=== PATIENT | female | born 1985 | race African-American/Black ===

== ENCOUNTER 2017-10-25 08:19 | Inpatient (IN) | payer OTHER ==
[~2017-10-25] VITALS: Ht 152.4 cm; Wt 126.1 kg
[2017-10-25 08:25] VITALS: BP 112/66
[2017-10-25] MEDS ORDERED: COUMADIN7.5 MG PO (08:30)
[2017-10-25] MEDS ORDERED: PLAVIX 75 MG TA75 M1 PO (08:30)
[2017-10-25] MEDS ORDERED: FOLIC ACID1 MG PO (08:30)
[2017-10-25] MEDS ORDERED: LASIX 20 MG TAB20 MG PO (08:30)
[2017-10-25] MEDS ORDERED: ASPIR 8181 MG PO (08:30)
[2017-10-25] MEDS ORDERED: ATORVASTATIN CA40 MG PO (08:31)
[2017-10-25] MEDS ORDERED: PREDNISONE 10 M10 MG PO (08:31)
[2017-10-25] MEDS ORDERED: DROXIA200 MG PO (08:31)
[2017-10-25] MEDS ORDERED: NEURONTIN600 MG PO (08:32)
[2017-10-25 09:26] LABS: ABSOLUTE EOSINOPHILS 0.1 thou/uL (0.0-0.7); ABSOLUTE LYMPHOCYTES 0.5 thou/uL (0.8-5.3); ABSOLUTE MONOCYTES 0.4 thou/uL (0.0-1.2); ABSOLUTE NEUTROPHILS 1.3 thou/uL (1.6-8.1); BASOPHILS 1.5 %; EOSINOPHILS 2.2 %; HEMATOCRIT 25.3 % (37.0-47.0); HEMOGLOBIN 8.6 gm/dL (12.0-15.0); LYMPHOCYTES 23.1 %; MCH 31.5 pg (26.0-34.0); MCHC 33.9 g/dL (28.0-37.0); MCV 93.1 fL (80.0-100.0); MONOCYTES 16.8 %; MPV 8.5 fl. (7.2-11.1); NUCLEATED RBCS 0 /100WBC; PLATELET COUNT* 109 thou/uL (150-400); POLYS 56.4 %; RBC 2.72 mil/uL (4.20-5.00); RDW-CV 18.6 % (10.5-14.5); WBC 2.3 thou/uL (4.0-11.0)
[2017-10-25 09:35] LABS: ANION GAP 8 mmol/L (7-16); APTT 29.2 Seconds (25.0-31.3); BUN 4 mg/dL (7-18); CHLORIDE 108 mmol/L (98-107); CO2 26 mmol/L (21-32); CREATININE 0.6 mg/dL (0.6-1.3); GLUCOSE 85 mg/dL (70-99); INR 1.2; POTASSIUM 3.2 mmol/L (3.5-5.1); PROTIME 11.8 Seconds (9.20-11.50); SODIUM 142 mmol/L (136-145)
[2017-10-25 09:49] LABS: ALBUMIN 3.1 g/dL (3.4-5.0); ALKALINE PHOSPHATASE 173 U/L (46-116); LIPASE 61 U/L (73-393); MAGNESIUM 1.4 mg/dL (1.8-2.4); NT-PRO BRAIN NAT PEPTIDE 291 pg/mL (<300); SGOT 23 U/L (15-37); SGPT 36 U/L (30-65); TOTAL BILIRUBIN 0.3 mg/dL (<0.1-1.0); TOTAL PROTEIN 6.7 g/dL (6.4-8.2); TROPONIN-I LEVEL <0.06 ng/mL (<0.06)
[2017-10-25 11:34] VITALS: BP 112/66
--- NOTE | 2017-10-25 12:36 | NUR ---
CONSULTED BY ED TO PLACE PICC AFTER SEVERAL FAILED IV ATTEMPTS.PT REPORTS MULTIPLE PICC LINES IN THE PAST. RISK AND BENIFIT REVIEWED. CONSENT OBTAINED. ORDER NOTED. RIGHT UPPER ARM ASSESSED WITH ULTRRASOUND. RIGHT CEPHALIC IDENTIFIED AND NOTED TO BE DEEP AT 3CM. UNABLE TO IDENTIFY BASILIC VEIN. USING ULTRASOND ABLE TO GET INTO CEPHALIC ON 1ST ATTEMPT. GOOD BLOOD RETURN NOTED. WIRE FED WITH OUT DIFFICULTY. UNABLE TO FEED PICC LINE PAST CLAVICAL. PT INFORMES THAT SHE HAS LYMPHOMA AND A MASS IN THAT AREA. SPOKE WITH DR. ESPINOZA AT THAT TIME. LINE WAS TRIMMED TO 30CM AND ADVANCED WTIH EASE TO 28CM AND TO BE USED MIDLINE. GOOD BRISK BLOOD RETURN AND FLUSH WITH EASE. LINE IS A 5FR DUAL LUMAN.
--- NOTE | 2017-10-25 14:00 | NUR ---
RECEIVED REPORT. PT TRANSFERRED TO ROOM 231 VIA CART. UPON ASSESSMENT PT WITHDRAWN. PT WILL NOT MAKE EYE CONTACT WITH NURSE. PT REFUSES THIS NURSE TO PUT ON HEART MONITOR. PT SAID "I CAN DO IT." ASKED PT ABOUT DRESSING TO RIGHT NECK. PT SAYS ITS FROM A PREV. CENTRAL LINE. ASKED PT WHEN SHE WAS HOSPITALIZED PT SAYS ITS FROM "A LONG TIME AGO" ASKED PT WHY DRESSING IS STILL IN PLACE THEY ARE TYPICALLY REMOVED 24 HRS AFTER CENTRAL LINE IS DISCONTINUED. PT SAYS "DON'T WORRY ABOUT IT" ASKED PT WHY SHE WOULDN'T TELL RN BUT PT WOULD NOT RESPOND. PT CURRENTLY HAS RIGHT UPPER ARM MIDLINE INSERTED FROM THE ER. PT REPORTS PAIN AND IS ASKING WHEN SHE CAN GET IV PAIN MEDS. INFORMED PT THAT SHE WILL NEED TO BE SEEN BY PHYSICIAN FIRST. ADMISSION HISTORY AND ASSESSMENT COMPELTED CHARTED. PT ON RA. IVF INITIATED. PT REFUSING LABS. INFORMED DR. MONTEZ OF PT'S PRESENTATION. THIS NURSE IN ROOM WITH MELIDA TO DISCUSS CONCERNS. IT WAS DISCOVERED THAT PT WAS RECENTLY SEEEN AT [place] USING AN ALIAS NAME OF GLORIA CHAN. DR. MONTEZ STATED HE WOULD NOT BE GIVING PT IV NARCATIC MEDICATIONS UNTIL HOME MEDICATIONS ARE VERIFIED BY PT'S PHRAMACY. PT STATES HER PHARMACY IS WITH [facility] PHONE NUMBER: [phone]. ALSO OBTAINING MEDICAL RECORDS USING BOTH PT'S ALIAS.
--- NOTE | 2017-10-25 15:30 | NUR ---
PT GIVEN PAIN MEDS AND IVF STARTED. PT CONTINUES TO REFUSE LABS AND OTHER TREATMENTS. PT THEN STATED IV WAS HURTING AND WANTED IT REMOVED. EXPLAINED TO PT THAT IS THE ONLY ACCESS AVAILABLE AND WE WOULD NOT BE ABLE TO GET ANOTHER STARTED. PT STATED SHE WANTS IT REMOVED. INFORMED PT THAT NURSE WOULD BE IN TO REMOVE LINE IN A MINUTE. PT THEN STATES THAT SHE WANTS TO LEAVE AMA. PT SIGNED AMA FORM. PT ESOCRTED OFF UNIT VIA W/C. PT LEFT IN PRIVATE VEHICLE.
--- NOTE | 2017-10-25 16:31 | EKG ---
[place] [address] ELECTROCARDIOGRAM REPORT Name: TOMASA ASHBY Room: [address] [place] .R.#: [id number] Admission: 10/25/17 Attend Phys: Ward Thomas MD Discharge: 10/25/17 Date of : 85 Report #: [id number] THIS REPORT FOR: //name// [facility] [place] ED Test Date: 2017-10-25 Test Time: 08:26:40 Pat Name: TOMASA ASHBY Department: Room: Gender: F Operations Agent: CAROLE : [id number] Requested By: Sujit Moise Order Number: [id number] : Michael Maki Measurements Intervals [place] Rate: 98 P: 54 GA: 197 QRS: 34 QRSD: 103 T: 9 QT: 353 QTc: 451 Interpretive Statements Sinus rhythm Borderline prolonged GA interval Low voltage, precordial leads Borderline T abnormalities, anterior leads No previous ECG available for comparison Electronically Signed On 10-25-2017 16:31:17 CDT by Michael Maki [email or web address] <ELECTRONICALLY SIGNED> By: Michael Maki MD, [facility] 10/25/17 1631 0826 0826 Michael Maki MD, [facility] /EPI
== END 2017-10-25 15:30 | disposition left against medical advice (07) | DRG 812 ==
LOC: M.ERS 08:19 → M.2W 10:49 → M.TBA-ER 10:49 → M.2W 12:26
PROVIDERS: Emergency Medicine Emergency Medical Services; ADMIT Internal Medicine
DX: D57.01 Hb-SS disease with acute chest syndrome (principal); E87.6 Hypokalemia; E83.42 Hypomagnesemia; I50.9 Heart failure, unspecified; Z53.21 Procedure and treatment not carried out due to patient leaving prior to being seen by health care provider; Z90.49 Acquired absence of other specified parts of digestive tract; Z79.01 Long term (current) use of anticoagulants; Z79.899 Other long term (current) drug therapy; Z79.82 Long term (current) use of aspirin